=== PATIENT | female | born 1995 | race Caucasian/White ===

== ENCOUNTER 2023-10-11 15:57 | Emergency (ER) | payer MEDICAID ==
[~2023-10-11] VITALS: Ht 167.6 cm; Wt 70.3 kg
[2023-10-11 16:04] VITALS: BP 132/62; PULSE 90; RESP 20; TEMP 97.8; O2SAT 98
[2023-10-11 17:21] LABS: BASOPHILS % (AUTO) 0.3 % (0.0-2.0); EOSINOPHILS % (AUTO) 0.1 % (0.0-4.0); HEMATOCRIT 38.3 % (36-48); LYMPHOCYTES # (AUTO) 1.3 K/uL (2.5-16.5); LYMPHOCYTES % (AUTO) 10.2 % (20.5-51.1); MEAN CORPUSCULAR HEMOGLOBIN 29 pg (27-31); MEAN CORPUSCULAR HGB CONC 34 g/dL (33-37); MEAN CORPUSCULAR VOLUME 85.2 fL (80-94); MONOCYTES # (AUTO) 0.9 K/uL (0.8-1.0); MONOCYTES % (AUTO) 7.2 % (1.7-9.3); NEUTROPHILS # (AUTO) 10.5 K/uL (1.8-7.7); NEUTROPHILS % (AUTO) 82.2 % (42.2-75.2); PLATELET COUNT (AUTO) 317 K/uL (140-450); RED CELL DISTRIBUTION WIDTH 13.1 % (11.6-13.7); WHITE BLOOD COUNT (AUTO) 12.8 K/uL (4.8-10.8)
[2023-10-11] MEDS ORDERED: NACL 0.9% 1,000 ML IV ONE (17:25)
[2023-10-11] MEDS ORDERED: PNV1TABL5 PO (18:55)
[2023-10-11 19:12] VITALS: BP 121/83; PULSE 104; RESP 19; TEMP 97.8; O2SAT 97
== END 2023-10-11 19:12 | disposition home or self-care (01) ==
LOC: MED 15:57
DX: O9A.211 Injury, poisoning and certain other consequences of external causes complicating pregnancy, first trimester (principal); T40.414A Poisoning by fentanyl or fentanyl analogs, undetermined, initial encounter; O26.891 Other specified pregnancy related conditions, first trimester; R10.2 Pelvic and perineal pain; Z3A.01 Less than 8 weeks gestation of pregnancy; Z79.899 Other long term (current) drug therapy
CPT/HCPCS: 36415; 76801; 84702; 85025; 86900; 86901; 93005; 96360; 99284; J7030; Q0092